=== PATIENT | female | born 1945 | race Caucasian/White ===

== ENCOUNTER 2016-11-28 11:28 | Day surgery (SDCO) | payer OTHER, MEDICARE ==
[2016-11-28 11:48] LABS: BASOPHIL 1.1 % (0-2); EOSINOPHIL 1.6 % (0-7); HCT 40.9 % (37.0-47.0); HGB 13.5 g/dl (12.5-16.0); LYMPHOCYTE 26.7 % (15-48); MCH 29.4 pg (25.0-31.0); MCV 89.1 fL (78.0-100.0); MPV 10.2 fL (6.0-9.5); NEUTROPHIL 64.6 % (41-80); PLT 377 K/uL (150-400); RBC 4.59 M/uL (4.20-5.40); WBC 5.7 K/uL (4.0-10.5)
[2016-11-28 12:01] LABS: INR 0.99 (0.9-1.2); PROTHROMBIN TIME 12.7 SECONDS (11.7-14.0)
[2016-11-28 12:02] LABS: PTT 26.5 SECONDS (23.2-31.4)
[2016-11-28 12:12] LABS: ALBUMIN 4.6 g/dL (3.4-4.8); BILIRUBIN - TOTAL 0.2 mg/dL (0.1-1.0); CREATININE 0.9 mg/dL (0.5-1.0); GLOBULIN (CALCULATION) 2.7 g/dL (2.2-4.2); MAGNESIUM 2.12 mg/dL (1.40-2.10); POTASSIUM 3.8 mmol/L (3.5-5.1); TOTAL PROTEIN 7.3 g/dL (6.4-8.3)
[2016-11-28 12:14] LABS: CKMB 2.36 ng/mL (0.97-4.94); MYOGLOBIN 51 ng/mL (26-65); TROPONIN T < 0.010 ng/mL
[2016-11-28 12:20] LABS: PRO-BNP 178 pg/mL (0-125)
[2016-11-28 17:57] LABS: TROPONIN T 0.085 ng/mL
[2016-11-28 18:00] LABS: CKMB 17.83 ng/mL (0.97-4.94)
[2016-11-29] LABS: CKMB 161.8 ng/mL (0.97-4.94)
== END 2016-11-29 02:38 | disposition other institution (70) ==
LOC: FER 11:28 → FTCU 13:22
PROVIDERS: Emergency Medicine; ADMIT Internal Medicine
DX: R07.9 Chest pain, unspecified (principal); I10 Essential (primary) hypertension; F41.9 Anxiety disorder, unspecified; H40.9 Unspecified glaucoma; Z90.49 Acquired absence of other specified parts of digestive tract; Z88.5 Allergy status to narcotic agent; Z82.49 Family history of ischemic heart disease and other diseases of the circulatory system; Z83.6 Family history of other diseases of the respiratory system; Z82.3 Family history of stroke; Z79.899 Other long term (current) drug therapy
CPT/HCPCS: 36415; 71010; 71275; 80053; 82550; 82553; 83735; 83874; 83880; 84484; 85025; 85610; 85730; 87804; 87899; 93005; 94010; G0378; J2270; Q9967

== ENCOUNTER 2022-01-20 09:40 | Emergency (ER) | payer MEDICARE, OTHER ==
[~2022-01-20 09:40] MED LIST: ASPIRIN EC81 MG PO; ATORVASTATIN CA10 MG PO; LOVAZA1 GM PO; NORVASC5 MG PO; PLAVIX75 MG PO; PROTONIX40 MG PO; TOPROL XL 25MG25 MG PO
[2022-01-20 11:17] LABS: BASOPHIL 1.6 % (0-2); EOSINOPHIL 2.5 % (0-7); HCT 44.4 % (37.0-47.0); HGB 14.3 g/dl (12.5-16.0); LYMPHOCYTE 29.9 % (15-48); MCH 29.2 pg (25.0-31.0); MCHC 32.2 g/dL (32.0-36.0); MCV 90.8 fL (78.0-100.0); MONOCYTE 12.9 % (0-12); MPV 10.7 fL (6.0-9.5); NEUTROPHIL 53.1 % (41-80); NRBC 0; PLT 367 K/uL (150-400); RBC 4.89 M/uL (4.20-5.40); RDW 12.2 % (11.5-14.0); WBC 5.1 K/uL (4.0-10.5)
[2022-01-20 11:18] LABS: ALBUMIN 3.9 g/dL (3.4-5.0); BILIRUBIN - TOTAL 0.3 mg/dL (0.2-1.0); BUN/CREAT RATIO (CALC) 8.9 RATIO; CREATININE 0.9 mg/dL (0.51-0.95); GLOBULIN (CALCULATION) 4.5 g/dL; POTASSIUM 3.9 mmol/L (3.5-5.1); TOTAL PROTEIN 8.4 g/dL (6.4-8.2)
[2022-01-20 11:19] LABS: BILIRUBIN NEGATIVE (NEGATIVE); BLOOD NEGATIVE Ery/uL (NEGATIVE); CLARITY CLEAR (CLEAR); COLOR YELLOW (YELLOW); GLUCOSE (U) NORMAL (NORMAL); LEUKOCYTES NEGATIVE Leu/uL (NEGATIVE); NITRITE NEGATIVE (NEGATIVE); PROTEIN NEGATIVE (NEGATIVE); SPECIFIC GRAVITY <=1.005 (1.001-1.030); UROBILINOGEN 0.2 mg/dL (0.2-1.0)
[2022-01-20] MEDS ORDERED: CARAFATE S500 MG/TSP PO (13:09)
[2022-01-20] MEDS ORDERED: ONDANSETRON ODT4 MG PO (13:09)
[2022-01-20] MEDS ORDERED: ACIPHEX20 MG PO (13:09)
== END 2022-01-20 13:57 | disposition home or self-care (01) ==
LOC: FER 09:40
PROVIDERS: Emergency Medicine
DX: R10.13 Epigastric pain (principal); R11.0 Nausea; I10 Essential (primary) hypertension; Z87.891 Personal history of nicotine dependence; Z88.5 Allergy status to narcotic agent; Z79.82 Long term (current) use of aspirin; Z79.899 Other long term (current) drug therapy
CPT/HCPCS: 36415; 80053; 81003; 83690; 84145; 84484; 85025; 93005; J1170; J2405; Q9967

== ENCOUNTER → 2022-03-14 | Day surgery (SDC) | payer MEDICARE, OTHER ==
[~2022-03-14] VITALS: Ht 152.4 cm; Wt 58.0 kg
[~2022-03-14] MED LIST changes: +ACIPHEX20 MG PO; +CARAFATE S500 MG/TSP PO; +CLORAZEPATE DI7.5 MG PO; +ONDANSETRON ODT4 MG PO
[2022-03-14 10:07] LABS: HCT 43.2 % (37.0-47.0); HGB 13.7 g/dl (12.5-16.0); MCH 28.8 pg (25.0-31.0); MCHC 31.7 g/dL (32.0-36.0); MCV 90.9 fL (78.0-100.0); RBC 4.75 M/uL (4.20-5.40); RDW 12.3 % (11.5-14.0); WBC 6.5 K/uL (4.0-10.5)
[2022-03-14 10:42] LABS: ALBUMIN 3.6 g/dL (3.4-5.0); BILIRUBIN - TOTAL 0.4 mg/dL (0.2-1.0); BUN/CREAT RATIO (CALC) 9.5 RATIO; CREATININE 0.84 mg/dL (0.51-0.95); GLOBULIN (CALCULATION) 3.9 g/dL; POTASSIUM 3.9 mmol/L (3.5-5.1); TOTAL PROTEIN 7.5 g/dL (6.4-8.2)
== END | disposition home or self-care (01) ==
LOC: FAS 08:51
PROVIDERS: Surgery
DX: K29.50 Unspecified chronic gastritis without bleeding (principal); K31.A19 Gastric intestinal metaplasia without dysplasia, unspecified site; K21.00 Gastro-esophageal reflux disease with esophagitis, without bleeding; K44.9 Diaphragmatic hernia without obstruction or gangrene; I10 Essential (primary) hypertension; E78.5 Hyperlipidemia, unspecified; I25.10 Atherosclerotic heart disease of native coronary artery without angina pectoris; I25.2 Old myocardial infarction; J44.9 Chronic obstructive pulmonary disease, unspecified; Z79.82 Long term (current) use of aspirin; Z79.899 Other long term (current) drug therapy; Z88.5 Allergy status to narcotic agent; Z87.891 Personal history of nicotine dependence; Z90.49 Acquired absence of other specified parts of digestive tract
CPT/HCPCS: 36415; 80053; J2704; J7120